=== PATIENT | female | born 1985 | race Caucasian/White ===

== ENCOUNTER 2018-08-10 16:41 | Emergency (ER) | END 2018-08-10 18:35 | disposition home or self-care (01) ==

== ENCOUNTER 2018-12-22 06:36 | Day surgery (SDC) | payer OTHER ==
[2018-12-22] VITALS (23 sets, daily range): BP systolic 85–122; BP diastolic 49–64; PULSE 64–77; RESP 12–28; Ht 142.2 cm; Wt 57.7 kg
[~2018-12-22] VITALS: Ht 142.2 cm; Wt 57.7 kg
[~2018-12-22 06:36] MED LIST: BUPIVACAINE 0.25% (MPF) 30 ML INJ INJ ONE; HYDR-4011 PO; IBUP-1542 PO; ONDA4TAB8 PO; PREN1TAB49
[2018-12-22] MEDS ORDERED: BUPIVACAINE 0.25% (MPF) 30 ML INJ ONE (09:20)
--- NOTE | 2018-12-22 09:29 | PREAC ---
Date/Time of Note Date/Time of Note DATE: 12/22/18 TIME: 09:28 Anesthesia Eval and Record Evaluation Time Pre-Procedure Interview DATE: 12/22/18 TIME: 09:28 Age 33 Sex female NPO: 8 hrs Preoperative diagnosis gallstones Planned procedure laproscopic cholecystectomy Past Medical History Past Medical History: None Surgery & Anesthesia Issues No known issue Meds Anticoagulation: No Beta Liz within 24 hr: No Reason Beta Liz not given: Pt. not on B-Liz Discontinued Reported Medications Vits W-Ca,Fe,Fa(<1MG) () 1 Tab Tablet 02/14/11 Discontinued Scripts Ondansetron Hcl* (Zofran*) 4 Mg Tablet, 4 MG PO Q6H for NAUSEA AND/OR VOMITING, #30 TAB Prov:GENTRY GARCIA C 08/10/18 Ibuprofen* (Motrin*) 600 Mg Tab, 600 MG PO Q6, #30 TAB Prov:RADHA,GENTRY C 08/10/18 Hydrocodone/Acetaminophen ([place] 5-325 Tablet) 1 Each Tablet, 1 TAB PO Q6H PRN for PAIN, #20 TAB Prov:GENTRY GARCIA C 08/10/18 Current Medications Cefazolin Sodium/ Dextrose 50 ml @ 100 mls/hr PRE-OP ONCE IVPB ; Start 12/22/18 at 10:00; Stop 12/22/18 at 10:29 Sodium Chloride 1,000 ml @ 75 mls/hr [id number] IV ; Start 12/22/18 at 10:00; Stop 12/22/18 at 23:19 Meds reviewed: Yes Allergies Coded Allergies: No Known Allergies (Verified Allergy, Mild, 12/22/18) Uncoded Allergies: PORK (Allergy, Unknown, 12/22/18) FOOD ALLERGY Allergies Reviewed: Yes Labs/Studies Labs Reviewed: Reviewed by anesthesiologist Result Diagram: 12/22/18 0750 12/22/18 0750 Laboratory Tests 12/22/18 07:50 test: Negative Pre-procedure Exam Last vitals Vital Signs Date Temp Pulse Resp B/P (MAP) Pulse Ox O2 O2 Flow FiO2 Time Delivery Rate 12/22/18 97.9 77 16 122/57 98 Room Air 08:03 (78) Airway: Adequate mouth opening, Adequate thyromental dist Mallampati: Mallampati III Teeth: Normal Lung: Normal Heart: Normal ASA Physical Status ASA physical status: 1 Emergency: None Pre-operative Attestations Prior to commencing anesthesia and surgery, the patient was re-evaluated, there was verification of: *The patient's identity *The results of appropriate recent lab work and preoperative vital signs *The above evaluation not changing prior to induction *Anesthetic plan, risk benefits, alternative and complications discussed with patient/family; questions answered; patient/family understands, accepts and wishes to proceed. CANDIS TORRES DO Dec 22, 2018 09:29
[2018-12-22] MEDS ORDERED: MEPERIDINE 25 MG INJ IV PRN (09:30)
[2018-12-22] MEDS ORDERED: OXYCODONE/ACETAMINOPHEN (5/325) TAB PO PRN ×2 (09:30)
[2018-12-22] MEDS ORDERED: LORAZEPAM 2 MG INJ IV PRN (09:30)
[2018-12-22] MEDS ORDERED: ONDANSETRON 4 MG INJ IV PRN (09:30)
[2018-12-22] MEDS ORDERED: DIPHENHYDRAMINE 50 MG INJ IV PRN (09:30)
[2018-12-22] MEDS ORDERED: HYDROmorphONE 1 MG/5 ML IV SYRINGE IV PRN (09:30)
[2018-12-22] MEDS ORDERED: ROCURONIUM 50 MG INJ ONE (09:32)
[2018-12-22] MEDS ORDERED: LIDOCAINE 1% (MDV) 20 ML INJ ONE (09:32)
[2018-12-22] MEDS ORDERED: PROPOFOL 20 ML ONE (09:32)
[2018-12-22] MEDS ORDERED: MIDAZOLAM 1 MG/ML 2 ML INJ ONE (09:32)
[2018-12-22] MEDS ORDERED: ROPIVACAINE 0.5 % 30 ML VIAL ONE (09:38)
[2018-12-22] MEDS ORDERED: CEFAZOLIN 1 GM INJ ONE (09:59)
[2018-12-22] MEDS ORDERED: CEFAZOLIN 2 GM/50 ML (PMX) 50 ML IVPB ONE (10:00)
[2018-12-22] MEDS ORDERED: SOD CHLORIDE 0.9% 1,000 ML IV SCH (10:00)
[2018-12-22] MEDS ORDERED: ONDANSETRON 4 MG INJ ONE (10:09)
[2018-12-22] MEDS ORDERED: FAMOTIDINE 20 MG INJ ONE (10:09)
[2018-12-22] MEDS ORDERED: GLYCOPYRROLATE 0.4 MG INJ ONE ×2 (10:21)
[2018-12-22] MEDS ORDERED: NEOSTIGMINE 3 MG/3 ML SYRINGE ONE (10:21)
--- NOTE | 2018-12-22 10:25 | OPR ---
Date/Time of Note Date/Time of Note DATE: 12/22/18 TIME: 10:23 Operative Report Procedure Date: Dec 22, 2018 Preoperative Diagnosis symptomatic gallstones Postoperative Diagnosis same Operation/Procedure Performed laparoscopic cholecystectomy Surgeon see signature line Field Sales Representative none Anesthesia Type: general Estimated Blood Loss: 0 - 10 ml's Transfusion none Specimen gallbladder Grafts/Implants none Complications none Pt Condition Post Procedure: stable Indications This is a 33-year-old female with some tender gallstones. She requests surgical excision of her gallbladder. Risks alternatives benefits of percent were discussed the patient. Patient expressed understanding and consents to the operation. Procedure Description Patient is taken to the OR and prepped and draped in usual sterile fashion. Surgical time was performed. IV antibiotics were given. Infraumbilical transverse incision was made with a 15 blade. Dissection with cautery was carried onto the fascia. The fascia was grasped with Newington's and divided with curved Chandler scissors. 0 Vicryl U stitch was placed into the fascia. Mackey trocar was introduced. Pneumoperitoneum is established. Midepigastric 12 mm optical trochars placed under direct visualization. Right upper quadrant upper flank 5 mm optical trochars were placed under direct visualization. Upon initial inspection there are some adhesions to the gallbladder which are taken down bluntly. The gallbladder was grasped the fundus and retracted in a lateral cephalad direction. [place] graspers were used to dissect out the cystic duct and cystic artery. The critical view was established. The cystic duct is divided with the clips proximally clipped distal and the division was performed laparoscopic scissors. Cystic artery was divided with 3 clips proximally clipped distal division was performed laparoscopic scissors. The gallbladder was taken of the gallbladder bed. Good hemostasis established. The gallbladder is retrieved using Endo Catch bag. Ports removed under direct position. 0 Vicryl stitch was tied down. Skin is closed and skin chrissie. A tap block was provided by the anesthesiologist the beginning of the case. Dry dressings were applied. Michel DUNAWAY Dec 22, 2018 10:24
[2018-12-22] MEDS ORDERED: HYDROCODONE/APAP (5/325) TAB PO ONE (10:30)
--- NOTE | 2018-12-22 10:40 | PAC ---
Date/Time of Note Date/Time of Note DATE: 12/22/18 TIME: 10:39 Post-Anesthesia Notes Post-Anesthesia Note Last documented vital signs Vital Signs Date Temp Pulse Resp B/P (MAP) Pulse Ox O2 O2 Flow FiO2 Time Delivery Rate 12/22/18 98 79 18 120/65 98 Room Air 1040 Activity: WNL Respiratory function: WNL Cardiovascular function: WNL Mental status: Baseline Pain reasonably controlled: Yes Hydration appropriate: Yes Nausea/Vomiting absent: Yes CANDIS TORRES DO Dec 22, 2018 10:40
[2018-12-22] MEDS: HYDROmorphONE 1 MG/5 ML IV SYRINGE IV PRN ×2 (10:45→11:04)
[2018-12-22] MEDS ORDERED: FENTAnyl 50 MCG/ML VIAL ONE (11:41)
[2018-12-22] MEDS ORDERED: FENTAnyl 50 MCG/ML VIAL IV ONE (12:00)
== END 2018-12-22 12:46 | disposition home or self-care (01) ==
LOC: SDS 06:36
PROVIDERS: ATTEND Surgery
DX: K80.10 Calculus of gallbladder with chronic cholecystitis without obstruction (principal)
CPT/HCPCS: 47562; 80053; 85025; 85610; 85730; 88304; J0690; J1170; J2250; J2405; J2710; J2795; J3010; Z7512; Z7610